=== PATIENT | male | born 1995 | race Caucasian/White ===

== ENCOUNTER 2021-11-25 03:55 | Emergency (ER) | payer MEDICAID ==
[~2021-11-25] VITALS: Ht 162.6 cm; Wt 65.9 kg
[2021-11-25 04:05] VITALS: BP 110/65
== END 2021-11-25 05:30 | disposition home or self-care (01) ==
LOC: ER 03:56
DX: Z00.00 Encounter for general adult medical examination without abnormal findings (principal); F17.200 Nicotine dependence, unspecified, uncomplicated; Z72.89 Other problems related to lifestyle; V89.2XXA Person injured in unspecified motor-vehicle accident, traffic, initial encounter; Y93.89 Activity, other specified; Y92.488 Other paved roadways as the place of occurrence of the external cause; Y99.8 Other external cause status
CPT/HCPCS: 99283